=== PATIENT | female | born 1930 | race Caucasian/White ===

== ENCOUNTER 2017-10-15 14:23 | Emergency (ER) | payer OTHER, MEDICAID ==
[2017-10-15 16:49] LABS: EOSINOPHILE ABSOLUTE 0.3 Th/cmm (0.1-0.4); HEMATOCRIT 41.8 % (41.0-60); HEMOGLOBIN 13.8 gm/dL (12-16); LYMPHOCYTE ABSOLUTE 0.2 Th/cmm (1.5-3.0); MEAN CELL VOLUME 90.6 fl (81-100); MEAN CORPUSCULAR HGB CONC 33.1 pg (28.0-36.0); MEAN PLATELET VOLUME 7.7 fl; MONOCYTE ABSOLUTE 0.6 Th/cmm (0.3-1.0); NEUTROPHILE ABSOLUTE 2.8 Th/cmm (1.8-8.0); PLATELET COUNT 182 Th/cmm (150-400); RED BLOOD COUNT 4.61 Mil/cmm (3.80-5.20); RED CELL DISTRIBUTION WIDTH 13.2 % (11.5-20.0)
[2017-10-15 17:04] LABS: WHITE BLOOD COUNT 3.9 Th/cmm (4.8-10.8)
[2017-10-15 17:16] LABS: ALB/GLOB RATIO 1.2 (1.0-1.8); ALBUMIN 3.9 gm/dL (3.7-5.3); ALKALINE PHOSPHATASE 105 U/L (34-104); ANION GAP 11.4 (7.0-16.0); BILIRUBIN,TOTAL 0.6 mg/dL (0.3-1.0); BUN - UREA NITROGEN 22 mg/dL (7-25); CALCIUM SERUM 10.1 mg/dL (8.6-10.3); CARBON DIOXIDE 24.8 mEq/L (21.0-31.0); CHLORIDE 107 mEq/L (98-107); CREATININE - SERUM 1.2 mg/dL (0.6-1.2); GLUCOSE 108 mg/dL (70-105); MAGNESIUM 2.1 mg/dL (1.9-2.7); POTASSIUM SERUM 4.2 mEq/L (3.5-5.1); SGOT 32 U/L (13-39); SGPT/ALT 21 U/L (7-52); SODIUM SERUM 139 mEq/L (136-145); TOTAL PROTEIN,SERUM 7.2 gm/dL (6.0-8.3); URIC ACID 3.6 mg/dL (2.3-6.6)
[2017-10-15] MEDS ORDERED: Pantoprazole 40 mg EC Tab PO ONE (17:16)
--- NOTE | 2017-10-15 18:16 | ER Physician Documentation ---
DATE OF SERVICE: 10/15/2017 The patient is going home. The patient is refusing any x-rays of the back or spine or of the knee and nothing abnormal has been detected except for mild epigastric discomfort. Her blood pressure is fine 145/73, right now it is about 128 or something like that over 70 and the patient has hypertension. MEDICATIONS: She does not want those medications also, so she wants one medication that is for her GERD, which I have given her Protonix 40 mg once a day, she should take it. All the lab results were done and they were found to be normal. Bed 5's lab reports showed white count of 3.9, hemoglobin of 13.8, hematocrit 41.8, platelet count 182,000, neutrophils are 70%, lymphocytes are 6.4%, monocytes at 14.9, BNP 79.2. There is no electrolyte results back, but to the best of my knowledge, I might have seen this and it is within normal limits, so the patient is going home and will continue the Protonix. FINAL DIAGNOSES: GERD, epigastric discomfort, underlying mild gastritis may be present. She has known case of hypertension. She has bilateral knee joint replacement. She has back pain and the patient is going home. She does not want her daughter to be called. 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 JOB# [id number]
[2017-10-15] MEDS: Pantoprazole 40 mg EC Tab PO STA (18:20)
[2017-10-15 19:38] LABS: TOTAL CELLS COUNTED 100
[2017-10-15 19:43] LABS: BAND NEUTROPHILE 0 % (0-10); BASOPHIL 0 % (0-3); EOSINOPHIL 0 % (0-5); LYMPHOCYTE 32 % (20-50); MONOCYTE 6 % (2-10); NEUTROPHILS 62 % (40-80); PLATELET ESTIMATE ADEQUATE (NORMAL); PLATELET MORPHOLOGY NORMAL (NORMAL)
--- NOTE | 2017-10-15 22:56 | Transfer Summary ---
DATE OF TRANSFER: 10/15/2017 EMERGENCY ROOM EVALUATION AND TREATMENT The patient was referred here, I believe by Dr. Neal. He is the patient's primary MD. The patient's complaint was mid back pain, pain in both the knee joints, and she has some abdominal gas pain, etc. HISTORY OF PRESENT ILLNESS: The patient said that she has come here to this facility a few times. She has some mid back pain for past 1 day duration, and the patient is known to have mild hypertension. Her father had mild hypertension. She had bilateral knee joint surgery. Otherwise, she says she has some mild hypertension here and there. I do not see any medication list here. The patient's other doctor's name is Dr. Héctor Gerber. Her telephone number is [phone], and person to notify in case of emergency is Dr. Jain, , she lives in [address] [place] [address]. Her telephone number is [phone]. In case of emergency, to notify Dr. Jain and . The patient was interviewed more. She did not have any other significant complaints. She has some abdominal pain. She says she is independent. She lives in a alf center, I believe there is an elevator there. She uses a walker and she can go up and down. She can take care of herself. The reason she does not live at the daughter's place is because of the pain in the knee joints and she cannot go up and down and hence a problem is there. The patient was sent over here because of these conditions. The patient's past medical history is not available at the present moment. The patient denies any complaint except for epigastric discomfort. She said she might have had hernia and they repaired it. I believe she had an endoscopy done and may have been given some PPI medications. Otherwise, she had bilateral knee joint surgery and she is presently independent. REVIEW OF SYSTEMS: EYES: No history of double vision, blurring, or blindness. NEURO SYSTEM: No history of TIA, stroke, and encephalitis. Central nervous system problem, psychiatric problem, depression, anxiety, etc. is absent. Parkinson's disease is absent. No psychosis. No other complaint. She is upset about a little delay in the service, as we were very busy today, but I saw the patient and calmed her down. I examined the patient and got the history. PULMONARY: No history of pneumonia, TB, pulmonary embolism, COPD, emphysema, bronchitis. Bones and joints show degenerative joint disease, both knee joint replacement. CARDIAC: No history of myocardial infarction, rheumatic fever, valvular heart disease, pericardial disease, or cardiomyopathy. Cardiac hadley, essentially negative. GI: The patient might have GERD, peptic ulcer disease or might have hiatus hernia. ENDOCRINE: No diabetes mellitus. No hypo or hyperthyroidism. GENITOURINARY: The patient does have some frequency of urination. We will check the urine to see if there is any infection. If so, we will treat it and then hopefully we might be able to discharge the patient with the treatment given to her. FAMILY HISTORY: Her family history is otherwise benign and negative. Father has hypertension and hypercholesterolemia. PHYSICAL EXAMINATION: VITAL SIGNS: The patient's triage nurse did the triage temperature 98.3, pulse of 85, respirations 18, blood pressure 129/76, and oxygen saturation is 100%. Height is 5 feet 8 inches. Weighing 175 pounds. PAST OTHER MEDICAL HISTORY: Benign and negative. PAST SURGICAL HISTORY: None. ALLERGIES: None known. She is very upset, but she has calmed down now. The diagnosis currently is the patient has pain in both knee joints and the patient has some epigastric discomfort, which might be secondary to GERD, hiatus hernia, and/or maybe peptic ulcer disease. She might need some PPI and some antacid medications and anti-arthritis medication. The patient said she has come here 3 times, but I do not see any significant pain. She has mild mid back pain. We will get a chest x-ray to see if she has any prolapsed disk or the patient has any osteoporosis and maybe osteopenia, and maybe any fracture in the back bone is present or not. Other diagnosis that she has is bilateral knee joint replacement. The patient was informed about her clinical picture. The patient's chest x-ray, labs, etc. has been ordered. JOB# [id number]
--- NOTE | 2017-10-16 08:03 | Diagnostic Imaging Report ---
Exam: Portable examination of chest. HISTORY: Pneumonia. Findings: Portable upright examination of the chest at 1642 hours reviewed, no prior studies available comparison. The study demonstrates a large ventral hernia. Mediastinal structures midline no acute pulmonic right side noted. Left-sided pacemaker identified. Bony thorax intact. Degenerative changes of the shoulder joints bilaterally appreciated. The aortic arch calcified. IMPRESSION: Large head hernia, no evidence for active pulmonic infiltrates Blunting left costophrenic angle might be related to atelectasis small effusion cannot excluded clinical correlation and follow-up examination is recommended.
== END 2017-10-15 18:23 | disposition home or self-care (01) ==
LOC: ER 14:23
DX: K21.9 Gastro-esophageal reflux disease without esophagitis (principal)
CPT/HCPCS: 36415-UA; 71045-TC; 80053-TC; 83605; 83735-TC; 84550-TC; 85007-TC; 85027-TC; Z7610